=== PATIENT | female | born 1990 | race Caucasian/White ===

== ENCOUNTER 2020-06-07 09:04 | Outpatient (REF) | payer MEDICAID, SELFPAY ==
--- NOTE | 2020-06-07 10:51 | US_ITS ---
EXAMINATION: OBSTETRICAL ULTRASOUND, FIRST TRIMESTER HISTORY: 30-year-old at 6.2 weeks of gestation Viability LMP: 04/24/2020 COMPARISON: 08/26/2018 TECHNIQUE: Real time transabdominal imaging with color and M-mode Doppler. Transvaginal ultrasound was performed for better resolution using an endovaginal probe. FINDINGS: A single, live IUP CRL of 2.4 mm c/w 5.6wks is noted. Heart Rate: 117 beats per minute. Right ovary measured the 4.9 x 3.0 x 3.8 cm. There are 2 clear cyst measuring 2.4 x 2.5 x 1.6 cm and 1.4 x 1.2 x 1.6 cm. Left ovary measured 2.3 x 1.6 x 2 cm. GESTATIONAL AGE: 1. GA from LMP: 6.2 wks 2. GA from AUA: 5.6 wks ESTIMATED DATE OF DELIVERY: 1. DANIEL from LMP: 01/29/2021 2. DANIEL from AUA: 01/31/2021 US/US OB transvaginal IMPRESSION: 1. A single live IUP 2. CRL consistent with 5.6 weeks of gestation confirming the DANIEL of 01/29/2021. 3. Right ovary containing two, small, anechoic cysts. Most likely remaining follicular cysts. No specific ultrasound followup appears needed at this time. Thank you very much for this referral.
--- NOTE | 2020-06-07 10:51 | US_ITS ---
EXAMINATION: OBSTETRICAL ULTRASOUND, FIRST TRIMESTER HISTORY: 30-year-old at 6.2 weeks of gestation Viability LMP: 04/24/2020 COMPARISON: 08/26/2018 TECHNIQUE: Real time transabdominal imaging with color and M-mode Doppler. Transvaginal ultrasound was performed for better resolution using an endovaginal probe. FINDINGS: A single, live IUP CRL of 2.4 mm c/w 5.6wks is noted. Heart Rate: 117 beats per minute. Right ovary measured the 4.9 x 3.0 x 3.8 cm. There are 2 clear cyst measuring 2.4 x 2.5 x 1.6 cm and 1.4 x 1.2 x 1.6 cm. Left ovary measured 2.3 x 1.6 x 2 cm. GESTATIONAL AGE: 1. GA from LMP: 6.2 wks 2. GA from AUA: 5.6 wks ESTIMATED DATE OF DELIVERY: 1. DANIEL from LMP: 01/29/2021 2. DANIEL from AUA: 01/31/2021 US/US OB <= 14 weeks fetus IMPRESSION: 1. A single live IUP 2. CRL consistent with 5.6 weeks of gestation confirming the DANIEL of 01/29/2021. 3. Right ovary containing two, small, anechoic cysts. Most likely remaining follicular cysts. No specific ultrasound followup appears needed at this time. Thank you very much for this referral.
[2020-06-09 11:58] LABS: BV Int Neg Control Negative (Negative); BV Int Pos Control Positive (Positive)
[2020-06-16 15:45] LABS: C. trachomatis RNA TMA NOT DETECTED; N. gonorrhoeae RNA TMA NOT DETECTED
== END 2020-06-07 09:05 | disposition home or self-care (01) ==
LOC: HO.LAB 09:04
PROVIDERS: PCP Family Medicine; Visit Provider Advanced Practice Midwife
DX: O26.892 Other specified pregnancy related conditions, second trimester (principal); O09.12 Supervision of pregnancy with history of ectopic pregnancy, second trimester; O20.9 Hemorrhage in early pregnancy, unspecified; N89.8 Other specified noninflammatory disorders of vagina; Z87.59 Personal history of other complications of pregnancy, childbirth and the puerperium; Z3A.14 14 weeks gestation of pregnancy
CPT/HCPCS: 76801; 76817; 81025; 84702; 86850; 86900; 86901; 87480; 87491; 87510; 87591; 87660; 99202

== ENCOUNTER → 2020-07-05 13:56 | Outpatient (BNVA) | payer MEDICAID, SELFPAY | PROVIDERS: PCP Family Medicine; Visit Provider Advanced Practice Midwife | DX: O09.529 Supervision of elderly multigravida, unspecified trimester (principal); O09.10 Supervision of pregnancy with history of ectopic pregnancy, unspecified trimester; Z98.84 Bariatric surgery status | CPT/HCPCS: 99212 ==

== ENCOUNTER 2020-07-15 08:35 | Outpatient (REF) | payer MEDICAID, SELFPAY ==
[2020-07-16 18:37] LABS: C. trachomatis RNA TMA NOT DETECTED (NOT DETECTED); N. gonorrhoeae RNA TMA NOT DETECTED (NOT DETECTED)
== END 2020-07-15 08:36 | disposition home or self-care (01) ==
LOC: HO.LAB 08:35
PROVIDERS: Visit Provider Advanced Practice Midwife
DX: O09.291 Supervision of pregnancy with other poor reproductive or obstetric history, first trimester (principal); O99.210 Obesity complicating pregnancy, unspecified trimester; O99.841 Bariatric surgery status complicating pregnancy, first trimester; O26.891 Other specified pregnancy related conditions, first trimester; N63.0 Unspecified lump in unspecified breast; Z3A.11 11 weeks gestation of pregnancy
CPT/HCPCS: 36415; 81003; 87491; 87591; 99212

== ENCOUNTER 2020-07-15 09:59 | Outpatient (REF) | payer MEDICAID, SELFPAY ==
[2020-07-15 11:53] LABS: Amphetamine Screen Urine Not Detected (Not Detect); Barbiturates, Urine Not Detected (Not Detect); Benzodiazepines Screen Urine Not Detected (Not Detect); Cannabinoid Screen Urine Not Detected (Not Detect); Cocaine Screen Urine Not Detected (Not Detect); Opiate Screen Urine Not Detected (Not Detect); Phencyclidine Screen Urine Not Detected (Not Detect)
[2020-07-15 11:54] LABS: MANUAL DIFF FLAG NO
[2020-07-15 12:06] LABS: Basophils Percent Auto 0.2 % (0-2); Eosinophils Absolute Auto 0.1 X10*3/uL (0.0-0.4); Eosinophils Percent Auto 0.9 % (0-4); Hematocrit 34.4 % (37-47); Hemoglobin 10.9 g/dl (12.0-16.0); Imm Gran Abs Auto 0.03 X10*3/uL (0.00-0.03); Imm Gran Pct Auto 0.4 % (0.0-0.4); Lymphocytes Absolute Auto 1.4 X10*3/uL (1.2-4.9); Lymphocytes Percent Auto 17.7 % (20-40); Mean Corpuscular HGB Conc 31.7 g/dl (31.0-35.0); Mean Corpuscular Volume 75.8 fL (80-98); Mean Platelet Volume 9.4 fL (9.4-12.3); Monocytes Absolute Auto 0.6 X10*3/uL (0.1-1.2); Monocytes Percent Auto 7.6 % (2-11); Neutrophils Absolute Auto 5.9 X10*3/uL (2.0-8.3); Neutrophils Percent Auto 73.2 % (45-73); Platelet Count 253 X10*3/uL (160-400); Red Blood Count 4.54 X10*6/uL (4.20-5.50); Red Cell Distribution Width 19.1 % (11.0-16.0); White Blood Count 8.1 X10*3/uL (4.8-10.8)
[2020-07-15 12:28] LABS: Glucose 1 Hour 178 mg/dL
[2020-07-15 12:39] LABS: Syphilis Screen Nonreactive (Nonreactive)
[2020-07-16 05:01] LABS: HIV AB/AG Nonreactive (Nonreactive); HIV Num 1 0.21 S/CO (0.00-0.99)
[2020-07-16 05:10] LABS: HBsAGNum1 0.17 S/CO (0.00-0.99); Hepatitis B Surface Antigen Negative (Negative); ~HepC Num1 0.09 S/CO (0.00-0.79); ~Hepatitis C Antibody Nonreactive (Nonreactive)
[2020-07-16 13:32] LABS: C. trachomatis RNA TMA NOT DETECTED (NOT DETECTED); N. gonorrhoeae RNA TMA NOT DETECTED (NOT DETECTED)
== END 2020-07-15 10:00 | disposition home or self-care (01) ==
LOC: HO.LAB 09:59
PROVIDERS: PCP Family Medicine; Visit Provider Advanced Practice Midwife
DX: O26.899 Other specified pregnancy related conditions, unspecified trimester (principal); Z3A.00 Weeks of gestation of pregnancy not specified
CPT/HCPCS: 80307; 82951; 85025; 86762; 86780; 86787; 86803; 86850; 86900; 86901; 87086; 87340; 87389; 87491; 87591

== ENCOUNTER 2020-07-19 10:16 | Outpatient (REF) | payer MEDICAID, SELFPAY ==
--- NOTE | 2020-07-19 10:18 | US_ITS ---
EXAMINATION: OBSTETRICAL ULTRASOUND, FIRST TRIMESTER HISTORY: 30-year-old at the 12.2 weeks of gestation NT screening BMI 43.4 COMPARISON: 06/07/2020 TECHNIQUE: Real time transabdominal imaging with color and M-mode Doppler. FINDINGS: A single, live IUP CRL of 53.9 mm c/w 12.1wks is noted. Heart Rate: 144 beats per minute. Normal yolk sac seen. NT was 1.03.mm. NB Present The embryo appears sonographically wnl for this GA. Right ovary is normal. Left ovary was not visible. GESTATIONAL AGE: 1. Established GA: 12.3 wks 2. GA from AUA: 12.1 wks ESTIMATED DATE OF DELIVERY: 1. Established DANIEL: 01/29/2021 2. DANIEL from [facility]: 01/30/2021 US/US OB 1T nuc measure IMPRESSION: 1. A single live IUP 2. Size equals dates 3. NT of 1.03 mm MFM Consultation: I reviewed the ultrasound findings along with significance of NT measurement. The NT of less than 3mm is generally reassuring. However, the sensitivity for T21 detection is only 60%. I reviewed the availability of serum aneuploidy screening which includes cell-free DNA and placental protein based tests. I discussed the sensitivity, false-positive rate, and other limitations associated with each test. I also reviewed the availability of invasive diagnostic tests that are associated small but definite risk of miscarriage. We also reviewed the differences between screening tests and diagnostic tests. After our discussion, she opted for the First trimester screening that is based on cell-free DNA or non-invasive testing (NIPT). The result will be faxed to your office in approximately 7 days. A follow up at 18 weeks for survey has been scheduled. Thank you very much for this referral. Majority of this visit was spent reviewing her care and counselling her in face to face time: Time spent 30 min.
== END 2020-07-19 10:17 | disposition home or self-care (01) ==
LOC: HO.US 10:16
PROVIDERS: Visit Provider Advanced Practice Midwife
DX: Z36.82 Encounter for antenatal screening for nuchal translucency (principal)
CPT/HCPCS: 76813

== ENCOUNTER 2020-07-24 14:51 | Outpatient (REF) | payer MEDICAID, SELFPAY ==
--- NOTE | 2020-07-24 14:55 | US_ITS ---
EXAMINATION: US DIAGNOSTIC ULTRASOUND BREAST, RIGHT CLINICAL INFORMATION: Right breast lump.. Patient is 13 weeks . COMPARISON: None. TECHNIQUE: Ultrasound of the breast is performed with real-time neal scale imaging and color Doppler. FINDINGS: There is no focal suspicious finding. There is no solid mass, architectural abnormality, duct ectasia, or edema in the soft tissue planes. Results are discussed with the patient at time of visit. US/US breast RT limited IMPRESSION: No specific ultrasound findings to suggest malignancy of the right breast. ASSESSMENT: BI-RADS 1: Negative RECOMMENDATION: Clinical follow-up This patient's information was entered into a reminder system with a target due date for their next mammogram.
== END 2020-07-24 14:52 | disposition home or self-care (01) ==
LOC: HO.MAMMO 14:51
PROVIDERS: PCP Advanced Practice Midwife; Visit Provider Advanced Practice Midwife
DX: O26.891 Other specified pregnancy related conditions, first trimester (principal); N63.11 Unspecified lump in the right breast, upper outer quadrant; Z3A.13 13 weeks gestation of pregnancy
CPT/HCPCS: 76642

== ENCOUNTER → 2020-08-12 09:14 | Outpatient (BNVA) | payer MEDICAID, SELFPAY | PROVIDERS: PCP Advanced Practice Midwife; Visit Provider Advanced Practice Midwife | DX: O99.210 Obesity complicating pregnancy, unspecified trimester (principal) | CPT/HCPCS: 81003; 99212 ==

== ENCOUNTER 2020-09-06 12:11 | Outpatient (REF) | payer MEDICAID, SELFPAY ==
--- NOTE | ~2020-09-06 | US_ITS ---
EXAMINATION: OBSTETRICAL ULTRASOUND, FIRST TRIMESTER HISTORY: 27-year-old at 18.2 weeks of gestation NT screening COMPARISON: 07/24/2020 TECHNIQUE: Real time transabdominal imaging with color and M-mode Doppler. FINDINGS: A single, live IUP CRL of 83.7 mm c/w 14.2wks is noted. Heart Rate: 1:30 beats per minute. Normal yolk sac seen. NT was 2.9.mm. NB Present The embryo appears sonographically wnl for this GA. Both maternal ovaries are seen and appear normal. GESTATIONAL AGE: 1. Established GA: 18.2 wks 2. GA from AUA: 14.2 wks ESTIMATED DATE OF DELIVERY: 1. Established DANIEL: 02/05/2021 2. DANIEL from AUA: 03/05/2021 US/US OB /maternal detail IMPRESSION: 1. Single live IUP 2. Size less than dates, CRL corresponds to 14.2 weeks of gestation. Adjust her DANIEL to 03/05/2021 based on today's examination. 3. Normal NT for this gestational age. MFM Consultation: I informed the patient that her DANIEL should be adjusted to 03/05/2021 I reviewed the ultrasound findings along with significance of NT measurement. The NT of less than 3mm is generally reassuring. However, the sensitivity for T21 detection is only 60%. I reviewed the availability of serum aneuploidy screening which includes cell-free DNA and placental protein based tests. I discussed the sensitivity, false-positive rate, and other limitations associated with each test. I also reviewed the availability of invasive diagnostic tests that are associated small but definite risk of miscarriage. We also reviewed the differences between screening tests and diagnostic tests. After our discussion, she opted for the First trimester screening that is based on cell-free DNA or non-invasive testing (NIPT). The result will be faxed to your office in approximately 7 days. A follow up at 18 weeks for survey has been scheduled. Thank you very much for this referral. Total time 30 minutes. The time spent was devoted to counseling the patient about the disease and diagnosis, coordinating care including reviewing her records, pertinent lab data and studies, as well as discussing diagnostic evaluation and workup, plan therapeutic interventions and future disposition of care. This includes any additional research needed to obtain further information in formulating the plan of care of this patient. This note was generated with a voice recognition program. Please excuse any errors which may have been overlooked during my review of this note. Sometimes these errors may affect the content or meaning of a given sentence.
== END 2020-09-06 12:12 | disposition home or self-care (01) ==
LOC: HO.US 12:11
PROVIDERS: Visit Provider Advanced Practice Midwife
DX: Z34.92 Encounter for supervision of normal pregnancy, unspecified, second trimester (principal); Z36.3 Encounter for antenatal screening for malformations
CPT/HCPCS: 76811

== ENCOUNTER → 2020-09-10 10:43 | Outpatient (BNVA) | payer MEDICAID, SELFPAY | PROVIDERS: PCP Advanced Practice Midwife; Visit Provider Advanced Practice Midwife | DX: Z34.92 Encounter for supervision of normal pregnancy, unspecified, second trimester (principal); Z3A.19 19 weeks gestation of pregnancy | CPT/HCPCS: 81003; 99212 ==

== ENCOUNTER → 2020-09-17 10:28 | Outpatient (BNVA) | payer MEDICAID, SELFPAY | PROVIDERS: PCP Advanced Practice Midwife; Visit Provider Advanced Practice Midwife | DX: Z34.92 Encounter for supervision of normal pregnancy, unspecified, second trimester (principal); Z3A.20 20 weeks gestation of pregnancy | CPT/HCPCS: 81003; 99212 ==

== ENCOUNTER → 2020-10-15 10:34 | Outpatient (BNVA) | payer MEDICAID, SELFPAY | PROVIDERS: PCP Advanced Practice Midwife; Visit Provider Advanced Practice Midwife | DX: Z34.92 Encounter for supervision of normal pregnancy, unspecified, second trimester (principal); Z3A.24 24 weeks gestation of pregnancy | CPT/HCPCS: 81003; 99212 ==

== ENCOUNTER → 2020-10-16 15:48 | Outpatient (BNVA) | payer MEDICAID, SELFPAY | PROVIDERS: PCP Advanced Practice Midwife; Visit Provider Advanced Practice Midwife | DX: Z13.89 Encounter for screening for other disorder (principal) | CPT/HCPCS: 99212 ==

== ENCOUNTER → 2020-11-21 10:52 | Outpatient (BNVA) | payer MEDICAID, SELFPAY | PROVIDERS: PCP Advanced Practice Midwife; Visit Provider Advanced Practice Midwife | DX: Z34.93 Encounter for supervision of normal pregnancy, unspecified, third trimester (principal); Z3A.30 30 weeks gestation of pregnancy | CPT/HCPCS: 81003; 99212 ==

== ENCOUNTER 2020-11-22 10:17 | Outpatient (REF) | payer MEDICAID, SELFPAY ==
--- NOTE | ~2020-11-22 | US_ITS ---
EXAMINATION: OBSTETRICAL ULTRASOUND, Follow up HISTORY: 30-year-old at 30.2 weeks of gestation High BMI GDM A1 COMPARISON: 09/06/2020 TECHNIQUE: Real time transabdominal imaging with color and M-mode Doppler. PRESENTATION: Vertex PLACENTA LOCATION: Posterior without previa AMNIOTIC FLUID: PATRICIA 17.9 cm MEASUREMENTS: 1. Biparietal Diameter: 7.9 cm; 31.4 wks 2. Head Circumference: 27.7 cm; 30.3 wks 3. Abdominal Circumference: 26.1 cm; 30.2 wks 4. Femur Length: 5.8 cm; 30.3 wks 5. Heart Rate: 139 beats per minute WEIGHT: EFW: 1598 grams (3 lbs 8 oz) -- 47 %. BIOPHYSICAL PROFILE: Motion: 2 Tone: 2 Breathin Amniotic Fluid: 2 Total score: 8/8 GESTATIONAL AGE: 1. Established GA: 30.2 wks 2. GA from AUA: 30.5 wks ESTIMATED DATE OF DELIVERY: 1. Established DANIEL: 01/29/2021 2. DANIEL from AUA: 01/26/2021 US/US OB follow up IMPRESSION: 1. A single active fetus is in vertex presentation 2. Size equals dates 3. Reassuring biophysical profile with normal amniotic fluid index. She informs me that she has been monitoring her fingerstick glucose values since 14 weeks of gestation. Currently on GDM diet. Reports that her fasting glucose this morning was in the 70s. Her postprandial last night was 106. She is not on any medication. I reviewed the potential clinical consequences of the suboptimally controlled maternal serum across values. Reassured her that there is no evidence of macrosomia or polyhydramnios. A follow-up is been scheduled in approximately 4 weeks. Thank you very much for this referral. Total time 20 minutes. The time spent was devoted to counseling the patient about the disease and diagnosis, coordinating care including reviewing her records, pertinent lab data and studies, as well as discussing diagnostic evaluation and workup, plan therapeutic interventions and future disposition of care. This includes any additional research needed to obtain further information in formulating the plan of care of this patient. This note was generated with a voice recognition program. Please excuse any errors which may have been overlooked during my review of this note. Sometimes these errors may affect the content or meaning of a given sentence.
== END 2020-11-22 10:18 | disposition home or self-care (01) ==
LOC: HO.US 10:17
PROVIDERS: Visit Provider Advanced Practice Midwife
DX: O99.210 Obesity complicating pregnancy, unspecified trimester (principal); E66.9 Obesity, unspecified
CPT/HCPCS: 76816

== ENCOUNTER 2020-12-05 13:42 | Outpatient (REF) | payer MEDICAID, SELFPAY ==
--- NOTE | ~2020-12-05 | US_ITS ---
EXAMINATION: US OBSTETRICAL (BIOPHYSICAL PROFILE) CLINICAL INFORMATION: deceleration. Additional age approximately 32 weeks COMPARISON: Obstetrical ultrasound follow-up 11/22/2020, 09/06/2020, 07/19/2020 TECHNIQUE: Ultrasound of the pelvis is performed. Biophysical profile is performed over 30 minutes with assessment of breathing, gross body movement, tone, and qualitative amniotic fluid volume. Each matrix is scored 0 or 2, depending if the metric is present. Maximum total score possible is 8. Examination is not intended to assess for anomalies. FINDINGS: POSITION: Cephalic PLACENTA: Posterior AMNIOTIC FLUID INDEX: 14.5 cm CARDIAC ACTIVITY: 139 beats per minute BIOPHYSICAL PROFILE: Motion: 2 Tone: 2 Breathin Amniotic Fluid: 2 Total score: 8 US/US OB biophysical profile IMPRESSION: 1. Single intrauterine gestation in cephalic position with posterior placenta. 2. Total biophysical score is 8 (scale 0-8). 3. Amniotic fluid index 14.5 cm. 4. cardiac activity 139 beats per minute.
== END 2020-12-05 13:43 | disposition home or self-care (01) ==
LOC: HO.US 13:42
PROVIDERS: PCP Advanced Practice Midwife; Visit Provider Advanced Practice Midwife
DX: O36.8390 Maternal care for abnormalities of the fetal heart rate or rhythm, unspecified trimester, not applicable or unspecified (principal); O99.213 Obesity complicating pregnancy, third trimester; E66.8 Other obesity; Z68.42 Body mass index [BMI] 45.0-49.9, adult; Z98.84 Bariatric surgery status; Z3A.32 32 weeks gestation of pregnancy
CPT/HCPCS: 59025; 76819; 99212

== ENCOUNTER → 2020-12-10 13:33 | Outpatient (BNVA) | payer MEDICAID, SELFPAY | PROVIDERS: PCP Advanced Practice Midwife; Visit Provider Obstetrics & Gynecology | DX: O99.213 Obesity complicating pregnancy, third trimester (principal); Z3A.32 32 weeks gestation of pregnancy; Z68.42 Body mass index [BMI] 45.0-49.9, adult | CPT/HCPCS: 59025; 99212 ==

== ENCOUNTER 2020-12-20 09:02 | Outpatient (REF) | payer MEDICAID, SELFPAY ==
--- NOTE | ~2020-12-20 | US_ITS ---
EXAMINATION: OBSTETRICAL ULTRASOUND, Follow up HISTORY: 30-year-old at 34.2 weeks of gestation Size date discrepancy High BMI COMPARISON: 12/05/2020 TECHNIQUE: Real time transabdominal imaging with color and M-mode Doppler. PRESENTATION: Vertex PLACENTA LOCATION: Posterior without previa AMNIOTIC FLUID: PATRICIA 15.1 cm MEASUREMENTS: 1. Biparietal Diameter: 8.7 cm; 35.1 wks 2. Head Circumference: 31.6 cm; 35.3 wks 3. Abdominal Circumference: 29.4 cm; 33.3 wks 4. Femur Length: 6.3 cm; 32.6 wks 5. Heart Rate: 139 beats per minute WEIGHT: EFW: 2224 grams (4 lbs 14 oz) -- 25 %. BIOPHYSICAL PROFILE: Motion: 2 Tone: 2 Breathin Amniotic Fluid: 2 Total score: 8/8 GESTATIONAL AGE: 1. Established GA: 34.2 wks 2. GA from AUA: 34.2 wks ESTIMATED DATE OF DELIVERY: 1. Established DANIEL: 01/29/2021 2. DANIEL from AUA: 01/29/2021 US/US OB follow up IMPRESSION: 1. A single active fetus is in vertex presentation 2. Size equals dates 3. Reassuring biophysical profile Thank you very much for this referral. Follow up when necessary. This note was generated with a voice recognition program. Please excuse any errors which may have been overlooked during my review of this note. Sometimes these errors may affect the content or meaning of a given sentence.
== END 2020-12-20 09:03 | disposition home or self-care (01) ==
LOC: HO.US 09:02
PROVIDERS: Visit Provider Advanced Practice Midwife
DX: O26.849 Uterine size-date discrepancy, unspecified trimester (principal); O99.210 Obesity complicating pregnancy, unspecified trimester; E66.8 Other obesity
CPT/HCPCS: 76816

== ENCOUNTER → 2020-12-24 10:07 | Outpatient (BNVA) | payer MEDICAID, SELFPAY | PROVIDERS: Visit Provider Advanced Practice Midwife | DX: O24.415 Gestational diabetes mellitus in pregnancy, controlled by oral hypoglycemic drugs (principal); O99.283 Endocrine, nutritional and metabolic diseases complicating pregnancy, third trimester; E28.2 Polycystic ovarian syndrome; Z3A.34 34 weeks gestation of pregnancy; O99.213 Obesity complicating pregnancy, third trimester; E66.8 Other obesity | CPT/HCPCS: 59025; 81003; 99212 ==

== ENCOUNTER 2020-12-31 13:37 | Outpatient (REF) | payer MEDICAID, SELFPAY ==
[2021-01-01 09:19] LABS: CT PCR NOT DETECTED (Not Detect.); NG PCR NOT DETECTED (Not Detect.)
[2021-01-01 09:24] LABS: BV Int Neg Control Negative (Negative); BV Int Pos Control Positive (Positive)
== END 2020-12-31 13:38 | disposition home or self-care (01) ==
LOC: HO.LAB 13:37
PROVIDERS: Visit Provider Advanced Practice Midwife
DX: O26.893 Other specified pregnancy related conditions, third trimester (principal); R03.0 Elevated blood-pressure reading, without diagnosis of hypertension; N89.8 Other specified noninflammatory disorders of vagina; N84.1 Polyp of cervix uteri
CPT/HCPCS: 59025; 81003; 87081; 87147; 87480; 87491; 87510; 87591; 87660; 99212

== ENCOUNTER 2021-01-01 13:42 | Outpatient (REF) | payer MEDICAID, SELFPAY ==
[2021-01-01 14:33] LABS: Hematocrit 33.4 % (37-47); Hemoglobin 10.4 g/dl (12.0-16.0); Mean Corpuscular HGB Conc 31.1 g/dl (31.0-35.0); Mean Corpuscular Hemoglobin 23.4 pg (27.0-33.0); Mean Corpuscular Volume 75.2 fL (80-98); Mean Platelet Volume 9.7 fL (9.4-12.3); Platelet Count 278 X10*3/uL (160-400); Red Blood Count 4.44 X10*6/uL (4.20-5.50)
[2021-01-01 15:00] LABS: Alanine Aminotransferase 10 U/L (0-31); Aspartate Amino Transferase 15 U/L (5-31); Blood Urea Nitrogen 11 mg/dL (9-16)
[2021-01-01 15:12] LABS: Creatinine Urine 21.33 mg/dL; Total Protein Urine Random < 7 mg/dL (<12)
[2021-01-01 15:35] LABS: Syphilis Screen Nonreactive (Nonreactive)
== END 2021-01-01 13:43 | disposition home or self-care (01) ==
LOC: HO.LAB 13:42
PROVIDERS: PCP Family Medicine; Visit Provider Advanced Practice Midwife
DX: O13.3 Gestational [pregnancy-induced] hypertension without significant proteinuria, third trimester (principal); O26.899 Other specified pregnancy related conditions, unspecified trimester; R51.9 Headache, unspecified; R03.0 Elevated blood-pressure reading, without diagnosis of hypertension; Z20.2 Contact with and (suspected) exposure to infections with a predominantly sexual mode of transmission
CPT/HCPCS: 36415; 84156; 84450; 84460; 84520; 85027; 86780; 99212

== ENCOUNTER → 2021-01-03 14:16 | Outpatient (BNVA) | payer MEDICAID, SELFPAY | PROVIDERS: Visit Provider Advanced Practice Midwife | DX: O13.3 Gestational [pregnancy-induced] hypertension without significant proteinuria, third trimester (principal); O26.893 Other specified pregnancy related conditions, third trimester; F43.21 Adjustment disorder with depressed mood; Z3A.36 36 weeks gestation of pregnancy | CPT/HCPCS: 59025; 99212 ==

== ENCOUNTER → 2021-01-07 13:45 | Outpatient (BNVA) | payer MEDICAID, SELFPAY | PROVIDERS: Visit Provider Advanced Practice Midwife | DX: O36.8130 Decreased fetal movements, third trimester, not applicable or unspecified (principal); Z3A.36 36 weeks gestation of pregnancy | CPT/HCPCS: 59025; 81003; 99212 ==

== ENCOUNTER → 2021-02-17 09:04 | Outpatient (BNVA) | payer MEDICAID, SELFPAY | PROVIDERS: Visit Provider Obstetrics & Gynecology | DX: Z30.09 Encounter for other general counseling and advice on contraception (principal); Z39.2 Encounter for routine postpartum follow-up | CPT/HCPCS: 99212 ==

== ENCOUNTER 2021-03-28 14:40 | Outpatient (REF) | payer MEDICAID, SELFPAY ==
[2021-03-28 15:33] LABS: HCG Quantitative < 2 mIU/mL
== END 2021-03-28 14:41 | disposition home or self-care (01) ==
LOC: HO.LAB 14:40
PROVIDERS: PCP Family Medicine; Visit Provider Advanced Practice Midwife
DX: O20.0 Threatened abortion (principal)
CPT/HCPCS: 36415; 84702

== ENCOUNTER 2021-09-18 14:49 | Outpatient (REF) | payer MEDICAID, SELFPAY ==
[2021-09-19 09:57] LABS: CT PCR NOT DETECTED (Not Detect.); NG PCR NOT DETECTED (Not Detect.)
[2021-09-19 11:16] LABS: BV Int Neg Control Negative (Negative); BV Int Pos Control Positive (Positive)
== END 2021-09-18 14:50 | disposition home or self-care (01) ==
LOC: HO.LAB 14:49
PROVIDERS: PCP Family Medicine; Visit Provider Advanced Practice Midwife
DX: N76.0 Acute vaginitis (principal)
CPT/HCPCS: 81025; 87480; 87491; 87510; 87591; 87660; 99212

== ENCOUNTER → 2022-04-28 11:39 | Outpatient (BNVA) | payer MEDICAID, SELFPAY | PROVIDERS: PCP Family Medicine; Visit Provider Dietitian, Registered | DX: O99.212 Obesity complicating pregnancy, second trimester (principal); E66.01 Morbid (severe) obesity due to excess calories; Z3A.00 Weeks of gestation of pregnancy not specified | CPT/HCPCS: 97803 ==

== ENCOUNTER 2024-08-23 18:12 | Emergency (ER) | payer OTHER, SELFPAY ==
--- NOTE | ~2024-08-23 | CT_ITS ---
CLINICAL HISTORY: headache CT head without contrast Comparison: CT/SR - BRAIN WO IV CONTRAST [id number] - 09/07/17 18:52 EDT Findings: The prior CT report is not available for review. No intra-axial mass, midline shift, hydrocephalus, or acute hemorrhage. No significant atrophy-like change or white matter disease. The visualized paranasal sinuses and mastoid air cells are normal. The orbits are unremarkable. There is no acute fracture. IMPRESSION: 1. No acute intracranial findings. This document has been electronically signed by: Cleo Dickinson MD on 08/23/2024 19:51:02
--- NOTE | 2024-08-23 18:27 | ECG_ITS ---
Test Reason : CP Blood Pressure : */* mmHG Vent. Rate : 77 BPM Atrial Rate : 77 BPM P-R Int : 156 ms QRS Dur : 76 ms QT Int : 382 ms P-R-T Axes : 42 13 29 degrees QTcB Int : 432 ms Normal sinus rhythm Nonspecific ST abnormality Abnormal ECG No previous ECGs available Referred By: Mere Salcido Electronically Signed By: RAJIV NASH MD
[2024-08-23 18:31] VITALS: BP 126/100; PULSE 88; O2SAT 100
[2024-08-23 18:34] VITALS: BP 174/81; PULSE 76; RESP 17; TEMP 36.6; O2SAT 99; BMI 48.0
--- OUTSIDE RECORDS SUMMARY | 2024-08-23 19:40 | XMS_ITS | Encounter Summary ---
Author Organization [employer] Address [address] [place] [address] Care Team Providers Care Motor Analyst Name Role Phone Alicia Melton MD Primary Care Provider [phone] Margarita Mccarthy Primary Care Provider [phone] Alicia Melton MD Primary Care Provider [phone] Glenda Dunn NP Primary Care Provider [phone] Encounter Details Date Type Department Care Team (Late st Contact Info) Description 07/03/2022 Orders Only [facility] MEDICINE [address] [place], [place] [phone] Alicia Melton MD [address] [place], [place] [phone] Social History Tobacco Use Types Packs/Day Years Used Date Smoking Tobacco: Never Assessed Comments Unknown Sex and Gender Information Value Date Recorded Sex Assigned at Female 04/20/2022 10:20 AM EDT Legal Sex Female 10:20 AM EDT Gender Identity Female 04/20/2022 10:20 AM EDT Sexual Orientation Straight 04/20/2022 10 :20 AM EDT documented as of this encounter Plan of Treatment Not on file documented as of this encounter Procedures Procedure Name Priority Date/Time Associated Diagnosis Comments PAP SMEAR Routine 09/19/2018 12:00 AM EDT documented in this encounter Results * Pap Smear (09/19/2018 12:00 AM EDT) Swab us Historical Provider LAB CYTOLOGY ORDERABLES F inal Result IMAGING documented in this encounter Visit Diagnoses Not on filedocumented in this encounter Care Teams Motor Analyst Relationship Specialty Start Date End Date Alicia Melton MD [address] [place] [address] PCP - General Family Medicine 06/21/18 07/13/23 [facility] Margarita [facility] [address] [place] [address] PCP - General Family Medicine 07/14/23 09/22/23 Alicia Melton MD [address] [place] [address] PCP - General Family Medicine 09/23/23 08/22/24 Glenda Dunn NP [address] [place] [address] PCP - General Family Medicine 08/23/24 documented as of this encounter
--- OUTSIDE RECORDS SUMMARY | 2024-08-23 19:40 | XMS_ITS | Encounter Summary ---
Author Organization [employer] Address [address] [place] [address] Care Team Providers Care Washery Boss Name Role Phone Glenda Dunn SOFI Primary Care Provider [phone] Reason for Visit * Reason Comments Med Refill Encounter Details Date Type Department Care Team ([facility] st Contact Info) Description 08/23/2024 5:20 PM EST Office Visit [facility] [address] [place] [address] Hypertensive urgency (Primary Dx); Dizziness Social History Tobacco Use Types Packs/Day Years Used Date Smoking Tobacco: Never Smokeless Tobacco: Never Alcohol Use Standard Drinks/Week Comments Never 0 (1 standard drink = 0.6 oz pur e alcohol) Housing Stability Answer Date Recorded What is your housing situation today? I have alexandru ivey 04/06/[address] you li ve. Do you have problems with any of the following? None of the above 04/06/2024 Food Insecurity Answer Date Recorded Within the past 12 months, y ou worried that your food would run out before you got money to buy more: Never True 04/06/2024 Within the past 12 months,th e food you bought just didn't last and you didn't have enough money to get more: Never True Transportation Answer Date Recorded In the past 12 months, has l ack of transportation kept you from medical appts, meetings, work or from getting things needed for daily living? No 04/06/2024 Utilities Answer Date Recorded In the past 12 months, has t he electric, gas, oil or water company threatened to shut off services in your home? No 04/06/2024 Internet Access Answer Date Recorded Internet Access Q1 Yes 04/06/2024 Internet Access Q2 Not on file 04/06/2024 Comments Unknown Sex and Gender Information Value Date Recorded Sex Assigned at Female 04/20/2022 10:20 AM EDT Legal Sex Female 10:20 AM EDT Gender Identity Female 04/20/2022 10:20 AM EDT Sexual Orientation Straight 04/20/2022 10 :20 AM EDT documented as of this encounter Last Filed Vital Signs Vital Sign Reading Time Taken Comments Blood Pressure 190/110 08/23/2024 5:50 PM EST Pulse 74 08/23/2024 5:23 PM EST Temperature 35.6 ??C (96.1 ??F) 08/23/2024 5:23 PM ES T Respiratory Rate 16 08/23/2024 5:23 PM EST Oxygen Saturation 99% 08/23/2024 5:23 PM EST Inhaled Oxygen Concentration - - Weight 120 kg (265 lb 3.2 oz) 08/23/2024 5:23 PM EST Height 160 cm (5' 3 ) 08/23/2024 5:23 PM EST Body Mass Index 46.98 08/23/2024 5:23 PM EST documented in this encounter Plan of Treatment Scheduled Orders Name Type Priority Associated Diagnoses Orde r Schedule POCT Glucose Point of Care Testing Routine Dizziness Ordered: 08/23/2024 documented as of this encounter Visit Diagnoses Diagnosis Hypertensive urgency- Primary Dizziness Dizziness and giddiness documented in this encounter Care Teams Washery Boss Relationship Specialty Start Date End Date Glenda Dunn NP [address] [place] [address] PCP - General Family Medicine 08/23/24 documented as of this encounter
--- OUTSIDE RECORDS SUMMARY | 2024-08-23 19:40 | XMS_ITS | Encounter Summary ---
Author Organization [employer] Address [address] [address] [place] [address] Care Team Providers Care Metal Stud Framer Name Role Phone Glenda Dunn PANELBOARD TANK PUMPER Primary Care Provider [phone] Encounter Details Date Type Department Care Team ([facility] st Contact Info) Description 08/23/2024 Telephone [facility] MEDICINE [address] [place] [address] Paola Bowens, RN Social History Tobacco Use Types Packs/Day Years Used Date Smoking Tobacco: Never Smokeless Tobacco: Never Alcohol Use Standard Drinks/Week Comments Never 0 (1 standard drink = 0.6 oz pur e alcohol) Housing Stability Answer Date Recorded What is your housing situation today? I have alexandrufreida ivey 04/06/[address] you [...] AM EDT documented as of this encounter Miscellaneous Notes * Telephone Encounter - Claudia Medina RN - 08/23/2024 6:22 PM EST EMS called by MANOLO Guevara for Hypertensive urgency per verbal order per Glenda Dunn NP. Pt also reporting h/a x3 days, black spotty vision, chest discomfort and dizziness that began today. Pt reporting she is not taking any BP medications at this time. RN informed pt status check would be placed tomorrow and encouraged to follow up with care. Pt verbalized understanding. EMS arrived and given verbal report by Nurse Guevara in addition to this RN. Pt being transported to [facility] ED. RN will forward message to Walk Nurses to status check pt tomorrow 08/24/24. Pt presented to [facility] c/o of being out of medications for over a year. Pt has no PCP and has not seenthem for over three years * Telephone Encounter - Paola Bowens RN - 08/23/2024 6:00 PM EST Pt presented to [facility] c/o of being out of medications for over a year. Pt has no PCP and has not seenthem for over three years documented in this encounter Plan of Treatment Not on file documented as of this encounter Visit Diagnoses Not on filedocumented in this encounter Care Teams Metal Stud Framer Relationship Specialty Start Date End Date Glenda Dunn NP [address] [place] [address] PCP - General Family Medicine 08/23/24 documented as of this encounter
--- OUTSIDE RECORDS SUMMARY | 2024-08-23 19:40 | XMS_ITS | Encounter Summary ---
Author Organization [employer] Address [address] [facility] [address] [place] [address] Care Team Providers Care Turkish Rubber Name Role Phone Alicia Melton MD Primary Care Provider [phone] Margarita Mccarthy Primary Care Provider [phone] Alicia Melton MD Primary Care Provider [phone] Glenda Dunn NP Primary Care Provider [phone] Encounter Details Date Type Department Care Team (Late st Contact Info) Description 09/16/2022 Abstract [facility] MEDICINE [address] [place], [place] [phone] Alicia Melton MD [address] [place], [place] [phone] Preventative health care; Transaminitis; Abnormal cervical Papanicolaou smear, unspecified abnormal pap finding Social History Tobacco Use Types Packs/Day Years Used Date Smoking Tobacco: Never Smokeless Tobacco: Never Tobacco Cessation:Counseling Given: Not Answered Comments Unknown Sex and Gender Information Value Date Recorded Sex Assigned at Female 04/20/2022 10:20 AM EDT Legal Sex Female 10:20 AM EDT Gender Identity Female 04/20/2022 10:20 AM EDT Sexual Orientation Straight 04/20/2022 10 :20 AM EDT documented as of this encounter Plan of Treatment Not on file documented as of this encounter Procedures Procedure Name Priority Date/Time Associated Diagnosis Comments LIPID PANEL, STANDARD Routine 07/13/2019 HEPATITIS C AB W/REFL TO HCV RNA, QN, PCR Routine 08/18/2016 HIV-1 ANTIBODY, EIA Routine 08/18/2016 documented in this encounter Results * (ABNORMAL) Lipid Panel, Standard (07/13/2019) Triglycerides 160 40 - 160 mg/dL Cholesterol 209(A) 0 - 200 mg/dL HDL Cholesterol 76(A) 35 - 70 mg/dL LDL Cholesterol 101 mg/dL Blood Venous blood specimen / Unknown Result [facility] Provider LAB BLOOD ORDERABLES Anu l Result * HIV-1 antibody, EIA (08/18/2016) External HIV-1 Antibody Negative Blood Venous blood specimen / Unknown Result [facility] Provider LAB BLOOD ORDERABLES Anu l Result * Hepatitis C Antibody with Reflex to HCV, RNA, Quantitative, Real-Time PCR (08/18/2016) Blood Venous blood specimen / Unknown 08/18/2016 Result [facility] Provider LAB BLOOD ORDERABLES Anu l Result documented in this encounter Visit Diagnoses Diagnosis Preventative health care Routine general medical examination at a health care facility Transaminitis Nonspecific elevation of levels of transaminase or lactic acid dehydrogenase (LDH) Abnormal cervical Papanicolaou smear, unspecified abnormal pap finding documented in this encounter Care Teams Turkish Rubber Relationship Specialty Start Date End Date Alicia Melton MD [address] [place] [address] PCP - General Family Medicine 06/21/18 07/13/23 [facility] [address] [place] [address] PCP - General Family Medicine 07/14/23 09/22/23 Alicia Melton MD [address] [place] [address] PCP - General Family Medicine 09/23/23 08/22/24 Glenda Dunn NP [address] [place] [address] PCP - General Family Medicine 08/23/24 documented as of this encounter
--- OUTSIDE RECORDS SUMMARY | 2024-08-23 19:40 | XMS_ITS | Clinical Summary ---
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 08/26/2022 Active Vit-Fe Buo-UQ-Hctwh (PNV Plus Multivit+DHA) 27-1 & 312 MG miscIndications:Hi story of gestational hypertension Take by mouth. 07/21/2022 Active Active Problems Problem Noted Date Diagnosed Date Hx of ectopic 06/02/2024 Transaminitis 02/18/2023 Other specified health status 12/23/2022 Overview (06/02/2024): -next physical exam due 05/17/2024 -eye care facilitated by [facility], last seen 2017 -dental home is -health care proxy BMI 45.0-49.9, adult 03/19/2022 Overview (06/02/2024): Obesity in (BMI >30) BMI at Intake 47.11 Date Obesity plan of care discussed 03/19/22 BMI > 50 (at 36 weeks or before) transfer to tertiary care (send TE to [facility]) * If BMI 40 or greater discuss policy w patient and add to high risk list * first trimester screen for diabetes - HgbA1c or 1-hr glucose tolerance test * Nutrition counseling - extensive on 04/16/22 at client's request * 11-20lb weight gain * Growth sono q 4 wks if fundal height not reliable, after 28 weeks * Induction only if indicated * PP lovenox according to guidelines Hx gastric sleeve surgery in 2018 with [facility], hasn't followed with their office 3 years ago. Before surgery 315, lowest weight was 220, with last gained 35-40 lbs, after that was hard to lose weight and was baseline 250, now 260 (about 12 lb weight gain since started ). Before got was taking protein shakes for meal replacement (which she liked) and having low carb diet, now eating regular carb diet and wasn't sure if protein shakes were safe. Not a lot of cravings, enjoy eating a balanced diet. 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 Extensive dietary counseling today and nutritional counseling today- big issue seems to be that patient thought she shouldn't continue low glycemic index/low carb high protein diet in . Discussed high protein, varied fruits and veggies, low glycemic index diet, balance of healthy fats, low carb particularly processed carbs. H/O gastric sleeve 03/05/2022 Overview (02/18/2023): Hx gastric sleeve surgery in 2018 with [facility], hasn't followed with their office 3 years ago. Before surgery 315, lowest weight was 220, with last gained 35-40 lbs, after that was hard to lose weight and was baseline 250, now 260 (about 12 lb weight gain since started ). History of gestational hypertension 03/05/2022 Overview (06/02/2024): Pt states was induced at 37+ weeks for gestational hypertension at [facility]. States she did not have pre-e and was not on mag. 03/05/22 records requested. ?? Basline HELLP labs, P/C ratio --ordered ?? Baby ASA at 12-14 wks --pt accepts. Abnormal cervical Papanicolaou smear 07/31/2021 Overview (04/18/2024): Pap with ASCUS 2011 at outside facility. Pt does not recall following up. No HPV noted. repeat pap 07/2016 and 09/2018 ASCUS with HPV negative. Repeat cotesting due in 3 years, 09/2022. Iron deficiency 07/31/2021 Overview (04/18/2024): No results found for: FERRITIN , HGB , HEMATOCRIT , IRONTOTAL Obesity 08/25/2013 PCOS (polycystic ovarian syndrome) 08/25/2013 Type 2 diabetes mellitus 08/25/2013 Overview (04/18/2024): Diabetes is controlled. -No results found for: HGBA1C -No results found for: CREATININE , EGFR , MICROALBCREU , LDLCHOLCAL -Zane/Arb: -Statin therapy: -Diabetic eye exam: -Diabetic foot exam: -Continue lifestyle modifications -Continue current medications Positive reaction to tuberculin skin test 2012 Overview (06/02/2024): 20mm. Pt did not keep sched appts x 2. Letter sent to the referring source. Resolved Problems Problem Noted Date Diagnosed Date Resolved Date Physical exam 05/17/2023 06/02/2024 Overview (05/17/2023): -Normal growth and development. -Anticipatory guidance discussed. -Preventative care / harm reduction discussed. Low mean corpuscular volume (MCV) during 03/06/2022 12/23/2022 Overview (09/16/2022): Needs hemoglobinopathy screening Ordered 03/19/22 Last Assessment & Plan: Pt states her iron has always been low even prior to gastric sleeve. Reports her pcp considered IV iron in the past, but never had it. To her knowledge has not had hgb screening. High-risk , third trimester 03/05/2022 12/23/2022 Overview (09/16/2022): TRANSFERRING CARE TO [facility] No OB-CMI score has been filled out for this encounter. Group PN care? * Rh pos GC/Chlam neg PAP NILM 10/12/18 Tdap * Flu 04/16/22 COVID-19 vaccinated and boosted Hgb * GTT * 28 wk Repeat RPR * GBS * PPBC * screening cfdna--NEG (female sex) Last Assessment & Plan: Feels well. Feeling very regular movement. Discussed expectations for movement at this [place]. She will be in [facility] Jun 17 - Jul 06. Recommended one visit right before leaving and schedule upon return, reviewed travel precautions. Ordered CBC and RPR for n.v. Encounters Date Type Department Care Team Description 08/23/2024 5:20 PM EST Office Visit [facility] [address] [place] [phone] Hypertensive urgency (Primary Dx); Dizziness 08/23/2024 Telephone [facility] [address] [place] [phone] Paola Bowens RN 06/03/2024 Orders Only [address] [address] Alicia Melton MD History of gestational hypertension (Primary Dx) 06/02/2024 Orders Only [address] [address] Alicia Melton MD Type 2 diabetes mellitus without complication, without long-term current use of insulin ([facility]) (Primary Dx); H/O gastric sleeve; Transaminitis 06/02/[address] [phone] Alicia Melton MD from Last 3 Months Immunizations Name Administration Dates Next Due Influenza injectable quadriv alent IIV4 with preservative 07/09/2016 Influenza injectable quadriv alent preservative free 04/16/2022,03/30/2019,07/16/2015 Influenza, IIV3, injectable 04/16/2022 Influenza, Split (incl. kim fied surface antigen) 08/25/2013 Pfizer Covid-19 Vaccine 12+ 07/13/2021,,10/09/2020 Pneumococcal Polysaccharide PPSV23 08/25/2013 Tdap 07/30/2022,,07/16/2015,08/25 Family History Medical History Relation Name Comments Diabetes Mother Relation Name Status Comments Mother Social History Tobacco Use Types Packs/Day Years Used Date Smoking Tobacco: Never Smokeless Tobacco: Never Tobacco Cessation:Counseling Given: Not Answered Alcohol Use Standard Drinks/Week Comments Never 0 [...] Orientation Straight 04/20/2022 10 :20 AM EDT Last Filed Vital Signs Vital Sign Reading [...] Mass Index 46.98 08/23/2024 5:23 PM EST Plan of Treatment Health Maintenance Due Date Last Done Comments Dental Prophylaxis 1988 Depression Screening 1988 Diabetes: Foot Exam 1998 Eye Exam 1998 Alcohol/Substance Use Screening 2000 Family Planning (PISQ) 2003 Diabetes: Urine Protein Screening 2007 Hepatitis B Vaccines (1 of 3 - 19+ 3-dose series) 2007 Dental Oral Exam 03/11/2009 09/07/2008 Dental X-Ray: Bitewings 09/05/2009 09/04/2008 Pneumococcal Vaccine: Pediatrics (0 to 5 Years) and At-Risk Patients (6 to 49) Years) (2 of 2 - PCV) 08/25/2014 08/25/2013 Diabetes: Hemoglobin A1C 10/12/2019 07/13/2019 Lipid Panel 07/13/2020 07/13/2019 Pap Smear 09/19/2021 09/19/2018 Dental X-Ray: Full Mouth 10/11/2022 10/11/2019, 08/19 Cervical Cancer Screening 10/13/2023 HPV/Cotest 10/13/2023 10/12/2018, 08/06/2016 COVID-19 Vaccine ( season) 2024 07/13/2021, 11/21/2020, 10/09/2020 Influenza Vaccine (#1) 2024 , 04/16/2022, 03/30/2019, Additional history exists SDOH Screening 04/06/2025 04/06/2024 Tobacco Screening 06/02/2025 06/02/2024 DTaP/Tdap/Td Vaccines (5 - Td or Tdap) 07/30/2032 07/30/2022, 07/17/2019, 07/16/2015, Additional history exists Zoster Vaccines (1 of 2) 2038 RSV Patients and Patients Aged 60 years or older (1 - 1-dose 75+ series) 2063 HIV Screening Completed 08/18/2016 Hepatitis C Screening Completed 08/18/2016 HIB Vaccines Aged Out No longer eligi ble based on patient's age to complete this topic HPV Vaccines Aged Out No longer eligi ble based on patient's age to complete this topic Hepatitis A Vaccines Aged Out No long er eligible based on patient's age to complete this topic IPV Vaccines Aged Out No longer eligi ble based on patient's age to complete this topic Meningococcal Vaccine Aged Out No georgia rainer eligible based on patient's age to complete this topic RSV under 20 months Aged Out No longe r eligible based on patient's age to complete this topic Rotavirus Vaccines Aged Out No longer eligible based on patient's age to complete this topic Procedures Procedure Name Priority Date/Time Associated Diagnosis Comments PANORAMIC RADIOGRAPHIC IMAGE Routine 10/11/2019 12:00 AM EDT HEMOGLOBIN A1C Routine 07/13/2019 7:35 AM EST LIPID PANEL, STANDARD Routine 07/13/2019 ZZZ HISTORICAL HPV MRNA E6/E7 Routine 10/12/2018 12:30 PM EDT PAP SMEAR Routine 09/19/2018 12:00 AM EDT HEPATITIS C AB W/REFL TO HCV RNA, QN, PCR Routine 08/18/2016 HIV-1 ANTIBODY, EIA Routine 08/18/2016 COMPREHENSIVE ORAL EVALUATION - NEW OR ESTABLISHED PATIENT Routine 09/07/2008 12:00 AM EDT INTRAORAL - COMPLETE SERIES OF RADIOGRAPHIC IMAGES Routine 09/04/2008 12:00 AM EDT from Last 3 Months or Most Recently Relevant to Health Maintenance Results * HEMOGLOBIN A1C (07/13/2019 7:35 AM EST) ESTIMATED AVG GLUCOSE 105 MG/DL [facility] Comment: eAG = Estimated average glucose which is %A1C expressed as average glucose, using the formula of the [id number] Average Glucose study (ADAG), Diabetes Care, Vol.31,#8, Jan. 2007 HEMOGLOBIN A1C % (HH) 5.3 % [facility] Comment: ?Hemoglobin A1C Reference Range ?Adults: ??4.8 - 6.0 % ?Non diabetic: ??< 6.0 % ?Goal: ??< 7.0 % ?? Additional Action Suggested: ??> 8.0 % ?? Note: ??Hemoglobin A1c results are invalid for patients ?with abnormal amounts of HbF. ??Blood transfusions ?may impact the HbA1c concentration in the patient ?sample. 07/13/2019 7:35 AM EST Historical Provider MD LAB BLOOD ORDERABLES Anu l Result [facility] [address] * (ABNORMAL) Lipid Panel, Standard (07/13/2019) [facility] Triglycerides 160 40 - 160 mg/dL Cholesterol 209(A) 0 - 200 mg/dL HDL Cholesterol 76(A) 35 - 70 mg/dL LDL Cholesterol 101 mg/dL Blood Venous blood specimen / Unknown Historical Provider MD LAB BLOOD ORDERABLES Anu l Result * HPV mRNA E6/E7 (10/12/2018 12:30 PM EDT) [facility] HPV mRNA E6/E7 Not Detected NOT DETECTED [facility] Comment: This test was performed using the APTIMA(R) HPV Assay ([employer] This assay detects E6/E7 viral messenger RNA (mRNA) from 14 high-risk HPV types (16,18,31,33,35,39,45,51, 52,56,58,59,66,68). For additional information please refer to: http://education.Full Circle CRM.Air2Web/faq/UZP519i7 (This link is being provided for informational/ educational purposes only.) The analytical performance characteristics of this assay have been determined by [place]. The modifications have not been cleared or approved by the FDA. This assay has been validated pursuant to the CLIA regulations and is used for clinical purposes. Test Performed by [facility], [facility], [address] [place] [address] Thom Marcial M.D., Ph.D., Director of Laboratories , CLIA [id number] Please note: ??Effective 03/02/2016, HPV testing will be performed using [employer]'s APTIMA test which targets mRNA. Detecting mRNA instead of DNA, as in older methods, offers significant improvements in specificity. 10/12/2018 12:3 0 PM EDT Alicia Melton MD HISTORICAL/NON ORDERABLE L ABS Final Result Performing Organization Address City[facility]/ZIP Co de Phone Number [place] [phone] * Pap Smear (09/19/2018 12:00 AM EDT) Swab Historical Provider LAB CYTOLOGY ORDERABLES F inal Result Performing Organization Address [facility]/ZIP Co de Phone Number IMAGING * Hepatitis C Antibody with Reflex to HCV, RNA, Quantitative, Real-Time PCR (08/18/2016) Blood Venous blood specimen / Unknown 08/18/2016 Historical Provider LAB BLOOD ORDERABLES Anu l Result * HIV-1 antibody, EIA (08/18/2016) External HIV-1 Antibody Negative Blood Venous blood specimen / Unknown Historical Provider LAB BLOOD ORDERABLES Anu l Result from Last 3 Months or Most Recently Relevant to Health Maintenance Insurance [place] [address] , [address] [address] [facility] MEDICAID STAND ADULT Care 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
[2024-08-23 19:42] LABS: MANUAL DIFF FLAG NO
[2024-08-23 19:43] LABS: Basophils Percent Auto 0.4 % (0-2); Eosinophils Percent Auto 0.5 % (0-4); Hematocrit 36.9 % (37.0-47.0); Hemoglobin 11.8 g/dl (12.0-16.0); Imm Gran Abs Auto 0.03 X10*3/uL (0.00-0.03); Imm Gran Pct Auto 0.4 % (0.0-0.4); Lymphocytes Percent Auto 13.1 % (20-40); Mean Corpuscular Hemoglobin 23.6 pg (27.0-33.0); Mean Corpuscular Volume 73.7 fL (80.0-98.0); Mean Platelet Volume 8.5 fL (9.4-12.3); Monocytes Absolute Auto 0.5 X10*3/uL (0.1-1.2); Monocytes Percent Auto 6.5 % (2-11); Neutrophils Absolute Auto 6.2 x10*3/uL (2.0-8.3); Neutrophils Percent Auto 79.1 % (45-73); Platelet Count 268 X10*3/uL (160-400); Red Blood Count 5.01 X10*6/uL (4.20-5.50); Red Cell Distribution Width 18.5 % (11.0-16.0); White Blood Count 7.9 X10*3/uL (4.8-10.8)
--- NOTE | 2024-08-23 19:48 | ED_ITS ---
HPI - Chest Pain General Chief Complaint: Chest Pain Stated Complaint: chest pain, htn 200/100 Time Seen by Provider: 08/23/24 18:37 Source: patient, RN notes reviewed and old records reviewed Mode of arrival: EMS Limitations: no limitations History of Present Illness ED Provider: Manuel ARREGUIN narrative: 34-year-old female with past medical history significant for morbid obesity status post gastric sleeve who presents for evaluation of high blood pressure, chest pain and headache. Patient reports that she did have hypertension with her 2 previous pregnancies but does not carry diagnosis of hypertension. She reports for the last 3 days she has had a right frontal headache which has been intermittent. Currently she has a dull headache but is much improved over the last couple of days. She went to urgent care earlier today due to her headache. She was found to be hypertensive as high as 200/100. ? The patient reports when she was told of her blood pressure being high she had some chest discomfort that has resolved Related Data Previous Rx's ?Medication ?Instructions ?Recorded metronidazole 500 mg tablet 500 mg PO BID 7 days #14 tabs 10/09/21 hydrochlorothiazide 25 mg tablet 25 mg PO DAILY #30 tabs 08/23/24 Allergies Allergy/AdvReac Type Severity Reaction Status Date / Time No Known Allergies Allergy Verified 08/23/24 18:36 [No Known Allergies*] Pt states no food/medication Allergy Unknown Unknown Uncoded 08/23/24 18:36 a Review of Systems 2 Constitutional: Constitutional: Denies body ache(s), Denies chills and Reports headache(s) ENT: Reports headache(s) and Reports sinus pressure Cardiovascular: Cardiovascular: Reports chest pain, Reports chest pain at rest and Denies dyspnea Respiratory: Respiratory: Denies cough and Denies dyspnea Gastrointestinal: Gastrointestinal: Denies abdominal pain, Denies nausea and Denies vomiting Musculoskeletal: Musculoskeletal: Denies back pain Neurologic: Reports headache(s) Psychiatric: Psychiatric: Reports anxiety and Denies depression [facility] Past Medical History Medical History Extreme obesity Hx of ectopic Surgical History History of gastric surgery Family History Family History Mother Hx of type 2 diabetes mellitus Hx of essential hypertension Father Hx of essential hypertension Hx of type 2 diabetes mellitus Maternal Grandmother Hx of type 2 diabetes mellitus Paternal Grandmother No problems noted. Paternal Grandfather No problems noted. Maternal Grandfather No problems noted. Social History Social History Household Members: Spouse Alcohol intake: current Alcohol intake frequency: holidays/special occasions only Smoked in Last 30 Days: No Use of substances other than those prescribed or required for medical reasons: No Advance Directives: No Advance Directives Information Provided: Yes Do you have a plan to hurt others: No Plan Sexual orientation: Straight/Heterosexual Physical Exam 2 Vital Signs: Vital Signs: Last Vital Signs Temp 98.3 F 08/23/24 20:07 Pulse 65 08/23/24 20:07 Resp 21 H 08/23/24 20:07 BP 149/77 H 08/23/24 20:07 Pulse Ox 99 08/23/24 20:07 O2 Del Method Room Air 08/23/24 20:07 BMI result Body Mass Index 48.0 Const: General: healthy appearing, comfortable, no acute distress, alert and awake Nutritional Appearance: well nourished Orientation/consciousness: p atient oriented x3 HEENT: Head: Yes normocephalic and Yes atraumatic Eyes: Eyelids: Yes eyelids normal Conjunctivae: conjunctivae normal S clerae: sclerae normal Corneas: corneas normal Pupils: Equal, round and reactive pupils present EOM: EOMs intact bilaterally Neck: Neck: Yes full ROM Resp: Effort & Inspection: normal respiratory effort, able to speak in complete sentences and not labored Cardio: Rate: regular rate Rhythm: regular rhythm Skin: General skin exam: elasticity normal Neuro: General: patient oriented x3 Cranial nerves: Yes Equal, round and reactive pupils present and Yes Bilaterally intact EOM present Cognition (Neuro): normal cognition Course Reevaluation(s) Reevaluation #1: Patient's workup largely unremarkable, troponin is negative and she has had chest pain on and off for several days, she rules out for ACS. CT scan is unremarkable, her blood pressure improved to 149/77. I discussed started the patient on a low-dose antihypertensive medication versus waiting until she sees her primary doctor. She was agreeable to starting antihypertensive therapy withdrawal since her pharmacy and she will follow up with her PCP Time: 20:58 Medications Administered Discontinued Medications Generic Name Dose Route Start Last Admin Trade Name Joie PRN Reason Stop Dose Admin Acetaminophen 650 mg 08/23/24 19:10 08/23/24 19:59 Acetaminophen 325 Mg Tablet PO 08/23/24 19:11 650 mg ONCE ONE Administration Medical Decision Making Medical Decision Making [facility] Narrative: 34-year-old female presents for evaluation of multiple complaints including headache, chest pain, high blood pressure. The patient's blood pressure on arrival was 174/81. She reports that her headache and chest pain have improved. The chest pain has completely resolved but she still has a dull headache. She reports a history of headaches but states this feels similar to previous headaches that she has had. She had no neuro deficits. Plan for CT scan of the brain. Given her significant hypertension and chest pain we will get an EKG, basic labs. Differential Diagnosis Differential Diagnoses: The differential diagnosis associated with the presentation includes Hypertension High blood pressure Intracranial hemorrhage Acute headache Sinusitis ACS less likely Admission/Observation Consideration of admission/observation: Escalation of care including admission/observation considered Lab Data [facility] Lab Attestation statement: I reviewed the patient's lab results. No leukocytosis. The patient has a mild microcytic anemia consistent with her baseline. Chemistries are significant for a random glucose of 119, no evidence of DKA. Patient has a slight elevation of AST and ALT. Possible viral etiology. 08/23/24 19:37 08/23/24 19:37 Labs: Lab Results 08/23/24 08/23/24 Range/Units 19:37 20:04 WBC 7.9 (4.8-10.8) X10*3/uL RBC 5.01 (4.20-5.50) X10*6/uL Hgb 11.8 L (12.0-16.0) g/dl Hct 36.9 L (37.0-47.0) % MCV 73.7 L (80.0-98.0) fL MCH 23.6 L (27.0-33.0) pg MCHC 32.0 (31.0-35.0) g/dl RDW 18.5 H (11.0-16.0) % Plt Count 268 (160-400) X10*3/uL MPV 8.5 L (9.4-12.3) fL Immature Gran % (Auto) 0.4 (0.0-0.4) % Neut % (Auto) 79.1 H (45-73) % Lymph % (Auto) 13.1 L (20-40) % [place] % (Auto) 6.5 (2-11) % Eos % (Auto) 0.5 (0-4) % Baso % (Auto) 0.4 (0-2) % Lymph # (Auto) 1.0 L (1.2-4.9) X10*3/uL [place] # (Auto) 0.5 (0.1-1.2) X10*3/uL Eos # (Auto) 0.0 (0.0-0.4) X10*3/uL Baso # (Auto) 0.0 (0.0-0.2) X10*3/uL Abs Immat Gran (auto) 0.03 (0.00-0.03) X10*3/uL Absolute Neuts (auto) 6.2 (2.0-8.3) x10*3/uL Absolute Nucleated RBC 0.000 (0.0-0.012) X10*3/uL Nucleated RBC % (auto) 0.0 (0.0-0.2) /100WBC PT 11.7 (10.9-12.4) SEC INR 1.0 (0.9-1.1) Sodium 141 (135-145) mmol/L Potassium 3.8 (3.3-5.1) mmol/L Chloride 106 (96-108) mmol/L Carbon Dioxide 26 (22-29) mmol/L Anion Gap 13 (12-20) BUN 12 (9-16) mg/dL Creatinine 0.60 (0.5-1.4) mg/dL Estim Creat Clear Calc 165.0 Estimated GFR > 60 Random Glucose 119 H (60-115) mg/dL Calcium 9.5 (8.4-10.2) mg/dL Total Bilirubin 0.2 (0.0-1.0) mg/dL AST 34 H (5-31) U/L ALT 36 H (0-31) U/L Alkaline Phosphatase 81 (39-117) U/L Troponin I High Sens < 2.7 (<3.5-17.0) ng/L Total Protein 8.0 (6.5-8.0) g/dL Albumin 4.0 (3.5-5.0) g/dL Beta HCG, Quant < 2 mIU/mL Urine Color Yellow Urine Appearance Clear Urine pH 5.5 (5.0-9.0) Ur Specific [place] 1.010 (1.005-1.025) Urine Protein Negative (Neg-Trace) mg/dL Urine Glucose (UA) Negative (Negative) mg/dL Urine Ketones Trace (Negative) mg/dL Urine Blood Small (1+) H (Negative) Urine Nitrite Negative (Negative) Ur Leukocyte Esterase Negative (Negative) Urine RBC 6-10 H (0-2) /HPF Urine WBC 0-5 (0-5) /HPF Ur Squamous Epith Cells 0-2 (0-2) /HPF Urine Bacteria None Seen (None Seen) Hyaline Casts 0-2 (0-2) /LPF Influenza Type A (PCR) NEGATIVE (Negative) Influenza Type B (PCR) NEGATIVE (Negative) RSV RNA Qual (PCR) NEGATIVE (Negative) SARS-CoV-2 RNA (RT-PCR) NEGATIVE (Negative) Independent Interpretation I performed an independent interpretation of an: EKG (Sinus rhythm with a rate of 77 beats per minute. No ST segment elevation or depressions no previous for comparison) Discharge Plan Discharge Clinical Impression: Chest pain, High blood pressure Patient Disposition: Home, Self-Care Instructions: Chest Pain (ED), Hypertension (ED) Additional Instructions: Your workup in the ER today was reassuring. It is important that you follow-up with your primary doctor Your blood pressure was elevated today and I recommend that you start taking hydrochlorothiazide 25 mg daily I recommend taking this medication in the morning as it may make you urinate more frequently. You should stop this medication if you notice any rashes, swelling or dizziness, lightheadedness Prescriptions: New hydrochlorothiazide 25 mg tablet 25 mg PO DAILY Qty: 30 0RF No Action metronidazole 500 mg tablet 500 mg PO BID 7 Days Qty: 14 0RF Rx Instructions: Take with food, Avoid alcohol and vinegar products Print Language: Yakut
[2024-08-23 19:54] LABS: Prothrombin Time 11.7 SEC (10.9-12.4)
[2024-08-23 19:57] LABS: Alanine Aminotransferase 36 U/L (0-31); Alkaline Phosphatase 81 U/L (39-117); Anion Gap 13 (12-20); Aspartate Amino Transferase 34 U/L (5-31); Bilirubin Total 0.2 mg/dL (0.0-1.0); Blood Urea Nitrogen 12 mg/dL (9-16); Calcium 9.5 mg/dL (8.4-10.2); Carbon Dioxide 26 mmol/L (22-29); Chloride 106 mmol/L (96-108); Estimated Glomerular Filt Rate > 60; Glucose Random 119 mg/dL (60-115); Potassium 3.8 mmol/L (3.3-5.1); Sodium 141 mmol/L (135-145)
[2024-08-23] MEDS: Acetaminophen 325 MG TABLET 650 MG PO (19:59)
[2024-08-23 20:04] LABS: HCG Quantitative < 2 mIU/mL; Troponin-I High Sensitivity < 2.7 ng/L (<3.5-17.0)
[2024-08-23 20:07] VITALS: BP 149/77; PULSE 65; RESP 21; TEMP 36.8; O2SAT 99
[2024-08-23 20:11] LABS: Appearance Urine Clear; Color Urine Yellow; Glucose Urine UA Negative (Negative); Leukocyte Esterase Urine Negative (Negative); Nitrite Urine Negative (Negative); PH 5.5 (5.0-9.0); UMIC TRIGGER UACC YES; Urine Blood Small (1+) (Negative); Urine Ketones Trace mg/dL (Negative); Urine Protein Negative (Neg-Trace)
[2024-08-23 20:13] LABS: Bacteria Urine None Seen (None Seen); Hyaline Casts Urine 0-2 /LPF (0-2); Squamous Epithelial Cell Urine 0-2 /HPF (0-2); WBC Urine 0-5 /HPF (0-5)
[2024-08-23 20:19] LABS: Influenza A PCR NEGATIVE (Negative); Influenza B PCR NEGATIVE (Negative); Resp Syncy Virus RNA Qual PCR NEGATIVE (Negative); SARS COV2 PCR INHOUSE NEGATIVE (Negative)
[2024-08-23 21:06] VITALS: BP 149/77; PULSE 65; RESP 21; TEMP 36.8; O2SAT 99
== END 2024-08-23 21:14 | disposition home or self-care (01) ==
PROVIDERS: Physician Assistant; Emergency Provider Emergency Medicine; PCP Family Medicine
DX: R07.9 Chest pain, unspecified (principal); R03.0 Elevated blood-pressure reading, without diagnosis of hypertension; E66.01 Morbid (severe) obesity due to excess calories; Z98.84 Bariatric surgery status; Z03.818 Encounter for observation for suspected exposure to other biological agents ruled out
CPT/HCPCS: 0241U; 36415; 70450; 80053; 81001; 84484; 84702; 85025; 85610; 93005; 99284; 99285

== ENCOUNTER → 2024-08-23 18:27 | Outpatient (BNV) | payer OTHER, SELFPAY | PROVIDERS: Emergency Provider Emergency Medicine; PCP Family Medicine; Visit Provider Internal Medicine Cardiovascular Disease | DX: R07.9 Chest pain, unspecified (principal); R94.31 Abnormal electrocardiogram [ECG] [EKG] | CPT/HCPCS: 93010 ==

== ENCOUNTER → 2024-08-23 19:10 | Outpatient (BNV) | payer OTHER, SELFPAY | PROVIDERS: PCP Family Medicine; Visit Provider Nuclear Medicine | DX: R07.9 Chest pain, unspecified (principal); R94.31 Abnormal electrocardiogram [ECG] [EKG] | CPT/HCPCS: 70450 ==

== ENCOUNTER 2024-09-08 14:36 | Outpatient (REF) | payer OTHER, SELFPAY ==
[2024-09-08 16:10] LABS: MANUAL DIFF FLAG NO
[2024-09-08 16:32] LABS: Basophils Percent Auto 0.3 % (0-2); Eosinophils Absolute Auto 0.1 X10*3/uL (0.0-0.4); Eosinophils Percent Auto 1.2 % (0-4); Hematocrit 36.9 % (37.0-47.0); Hemoglobin 11.6 g/dl (12.0-16.0); Imm Gran Abs Auto 0.04 X10*3/uL (0.00-0.03); Imm Gran Pct Auto 0.4 % (0.0-0.4); Lymphocytes Absolute Auto 1.9 X10*3/uL (1.2-4.9); Lymphocytes Percent Auto 18.9 % (20-40); Mean Corpuscular HGB Conc 31.4 g/dl (31.0-35.0); Mean Corpuscular Hemoglobin 23.9 pg (27.0-33.0); Mean Corpuscular Volume 76.1 fL (80.0-98.0); Mean Platelet Volume 9.3 fL (9.4-12.3); Monocytes Absolute Auto 0.7 X10*3/uL (0.1-1.2); Monocytes Percent Auto 6.8 % (2-11); Neutrophils Absolute Auto 7.3 x10*3/uL (2.0-8.3); Neutrophils Percent Auto 72.4 % (45-73); Platelet Count 284 X10*3/uL (160-400); Red Blood Count 4.85 X10*6/uL (4.20-5.50); Red Cell Distribution Width 18.5 % (11.0-16.0); White Blood Count 10.1 X10*3/uL (4.8-10.8)
[2024-09-08 16:45] LABS: Estimated Average Glucose 128 mg/dL; Hemoglobin A1C 134.5551 umol/L; Hemoglobin A1c % 6.1 % (<6.0)
[2024-09-08 17:19] LABS: Anion Gap 13 (12-20); Blood Urea Nitrogen 10 mg/dL (9-16); Calcium 8.9 mg/dL (8.4-10.2); Carbon Dioxide 25 mmol/L (22-29); Chloride 105 mmol/L (96-108); Estimated Glomerular Filt Rate > 60; Glucose Random 105 mg/dL (60-115); Potassium 3.7 mmol/L (3.3-5.1); Sodium 139 mmol/L (135-145)
[2024-09-08 17:50] LABS: Vitamin B12 1792 pg/mL (200-900)
[2024-09-08 18:10] LABS: Alanine Aminotransferase 28 U/L (0-31); Albumin Level 3.7 g/dL (3.5-5.0); Alkaline Phosphatase 80 U/L (39-117); Anion Gap 11 (12-20); Aspartate Amino Transferase 24 U/L (5-31); Bilirubin Direct < 0.2 mg/dL (0.0-0.5); Bilirubin Total 0.2 mg/dL (0.0-1.0); Blood Urea Nitrogen 10 mg/dL (9-16); Calcium 8.9 mg/dL (8.4-10.2); Carbon Dioxide 25 mmol/L (22-29); Chloride 105 mmol/L (96-108); Cholesterol 194 mg/dL (<200); Estimated Glomerular Filt Rate > 60; Ferritin 31 ng/mL (10-122); Glucose Random 106 mg/dL (60-115); HDL Cholesterol 70 mg/dL (>40); Iron 28 mcg/dL (30-160); LDL Cholesterol Calculated 63 mg/dL (<100); Percent Iron Saturation 10 % (15-50); Potassium 3.7 mmol/L (3.3-5.1); Sodium 137 mmol/L (135-145); Total Iron Binding Capacity 284 mcg/dL (228-428); Total Protein 7.6 g/dL (6.5-8.0); Triglycerides 307 mg/dL (<150); Unsaturated Iron Binding 256 ug/dL
[2024-09-08 19:35] LABS: TSH reflex Free T4 1.27 uIU/mL (0.32-4.0)
== END 2024-09-08 14:37 | disposition home or self-care (01) ==
LOC: HO.HHCL 14:36
PROVIDERS: Nurse Practitioner; Visit Provider Family Medicine
DX: E11.9 Type 2 diabetes mellitus without complications (principal); Z90.3 Acquired absence of stomach [part of]; I10 Essential (primary) hypertension
CPT/HCPCS: 36415; 80048; 80061; 80076; 82607; 82728; 83036; 83540; 84443; 85025